=== PATIENT | male | born 1960 | race Caucasian/White ===

== ENCOUNTER 2016-10-29 17:44 | Inpatient (IN) | payer OTHER ==
[~2016-10-29] VITALS: Ht 180.3 cm; Wt 121.8 kg
[~2016-10-29 17:44] MED LIST: AZOR10TA4 PO; HYDR-2768 PO
[2016-10-29 17:52] VITALS: BP 201/122; PULSE 103; RESP 20; TEMP 98.6; O2SAT 100
[2016-10-29] MEDS ORDERED: AMLO-298 PO (18:04)
[2016-10-29] MEDS ORDERED: MORPHINE SULFATE 4 MG/ML INJ IV PUSH ONE (18:15)
[2016-10-29] MEDS ORDERED: ONDANSETRON HCL 4 MG/2 ML VIAL IV PUSH ONE (18:15)
[2016-10-29 18:17] LABS: AUTOMATED NEUTROPHIL # 5.1 TH/MM3 (1.8-7.7); BASOPHIL # 0.1 TH/MM3 (0-0.2); BASOPHIL % 1.4 % (0.0-2.0); EOSINOPHIL # 0.2 TH/MM3 (0-0.4); HEMATOCRIT 46.9 % (39.0-51.0); HEMO FLAGS DIFF FINAL; LYMPH % 24.8 % (9.0-44.0); MEAN CELL VOLUME 91.2 FL (80.0-100.0); MEAN CORPUSCULAR HGB CONC 32.8 % (32.0-36.0); NEUT % 62.8 % (16.0-70.0); PLATELET COUNT 265 TH/MM3 (150-450); RED BLOOD COUNT 5.14 MIL/MM3 (4.50-5.90); RED CELL DISTRIBUTION WIDTH 14.4 % (11.6-17.2); WHITE BLOOD COUNT 8.2 TH/MM3 (4.0-11.0)
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
[2016-10-29 19:00] VITALS: BP 141/86; PULSE 80; RESP 14; O2SAT 98
[2016-10-29 19:01] LABS: BICARBONATE 25.1 MEQ/L (21.0-32.0); POTASSIUM 4.2 MEQ/L (3.5-5.1)
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
[2016-10-29] MEDS ORDERED: SODIUM CHLOR 0.9% 1000 ML INJ 1,000 ML IV SCH ×3 (19:39→23:37)
[2016-10-29 20:22] VITALS: BP 76/52; PULSE 90; RESP 18; O2SAT 99
[2016-10-29 20:30] VITALS: BP 102/64; PULSE 82; RESP 18; O2SAT 99
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
[2016-10-29 22:00] VITALS: BP 107/72; PULSE 86; RESP 16; O2SAT 98
[2016-10-29 22:37] LABS: AUTOMATED NEUTROPHIL # 14.7 TH/MM3 (1.8-7.7); BASOPHIL # 0.2 TH/MM3 (0-0.2); EOSINOPHIL # 0.1 TH/MM3 (0-0.4); EOSINOPHIL % 0.4 % (0.0-4.0); HEMATOCRIT 37.6 % (39.0-51.0); HEMO FLAGS DIFF FINAL; LYMPH % 9.4 % (9.0-44.0); LYMPHOCYTE # 1.7 TH/MM3 (1.0-4.8); MEAN CELL VOLUME 90.8 FL (80.0-100.0); MEAN CORPUSCULAR HEMOGLOBIN 31.1 PG (27.0-34.0); MEAN CORPUSCULAR HGB CONC 34.3 % (32.0-36.0); MONO % 8.8 % (0.0-8.0); NEUT % 80.4 % (16.0-70.0); PLATELET COUNT 265 TH/MM3 (150-450); RED BLOOD COUNT 4.14 MIL/MM3 (4.50-5.90); RED CELL DISTRIBUTION WIDTH 14.1 % (11.6-17.2); WHITE BLOOD COUNT 18.3 TH/MM3 (4.0-11.0)
[2016-10-29] MEDS ORDERED: SODIUM CHLORIDE 0.9% FLUSH 10 ML FLUSH IV FLUSH PRN (23:45)
[2016-10-29] MEDS ORDERED: MAGNESIUM HYDROXIDE SUSP 30 ML CUP PO PRN (23:45)
[2016-10-29] MEDS ORDERED: HYDROmorphone HCL PF 1 MG/ML VIAL IVP PRN (23:45)
[2016-10-29] MEDS ORDERED: ONDANSETRON HCL 4 MG/2 ML VIAL IV PRN (23:45)
[2016-10-29] MEDS ORDERED: CHLORHEXIDINE GLUCONATE 2 % 1 PACK (2 CLOTHS) TOP PRN (23:45)
[2016-10-29] MEDS ORDERED: MISCELLANEOUS NURSING INFORMATION XX SCH (23:45)
[2016-10-30] VITALS (9 sets, daily range): BP systolic 145–180; BP diastolic 89–99; PULSE 81–96; RESP 15–22; TEMP 96–97.8; O2SAT 93–100
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
[2016-10-30] MEDS: HYDROmorphone HCL PF 1 MG/ML VIAL IVP PRN ×3 (00:32→09:52)
[2016-10-30] MEDS ORDERED: CHLORHEXIDINE GLUCONATE 2 % 1 PACK (2 CLOTHS) TOP SCH (04:00)
[2016-10-30 08:04] LABS: AUTOMATED NEUTROPHIL # 6.7 TH/MM3 (1.8-7.7); BASOPHIL # 0.1 TH/MM3 (0-0.2); BASOPHIL % 0.8 % (0.0-2.0); EOSINOPHIL # 0.1 TH/MM3 (0-0.4); EOSINOPHIL % 0.9 % (0.0-4.0); HEMATOCRIT 34.5 % (39.0-51.0); HEMO FLAGS DIFF FINAL; LYMPHOCYTE # 1.7 TH/MM3 (1.0-4.8); MEAN CELL VOLUME 91.9 FL (80.0-100.0); MEAN CORPUSCULAR HEMOGLOBIN 29.9 PG (27.0-34.0); MEAN CORPUSCULAR HGB CONC 32.6 % (32.0-36.0); NEUT % 70.3 % (16.0-70.0); PLATELET COUNT 207 TH/MM3 (150-450); RED BLOOD COUNT 3.75 MIL/MM3 (4.50-5.90); RED CELL DISTRIBUTION WIDTH 14.4 % (11.6-17.2); WHITE BLOOD COUNT 9.5 TH/MM3 (4.0-11.0)
[2016-10-30] MEDS: DOCUSATE SODIUM 100 MG CAP PO SCH ×2 (08:37→20:16)
[2016-10-30] MEDS: LOSARTAN 50 MG TAB PO SCH (08:38)
[2016-10-30 08:46] LABS: BICARBONATE 28.1 MEQ/L (21.0-32.0); POTASSIUM 4.2 MEQ/L (3.5-5.1)
[2016-10-30] MEDS ORDERED: NON-FORMULARY DRUG (Amlodipine-Olmesartan 1 TAB) PO SCH (09:00)
[2016-10-30] MEDS: GABAPENTIN 400 MG CAP PO SCH ×2 (12:47→18:12)
[2016-10-30] MEDS: KETOROLAC TROMETHAMINE 30 MG/ML (IVP) VIAL IV PUSH SCH ×2 (12:48→18:13)
[2016-10-30] MEDS: ENOXAPARIN SODIUM 40 MG/0.4 ML SYRINGE SQ SCH (12:48)
--- NOTE | 2016-10-30 16:52 | HHI.PR ---
Subjective Subjective Notes Complains of pain left flank area with some neuropathic component, less pain at the groin hematoma area Objective Vitals/I&O Vital Signs Date Time Temp Pulse Resp B/P Pulse Ox O2 Delivery O2 Flow Rate FiO2 10/30/16 12:00 96.0 93 20 145/97 93 10/30/16 00:00 Room Air Labs Laboratory Tests Test 10/29/16 10/29/16 10/30/16 18:00 22:25 06:59 White Blood Count 8.2 18.3 9.5 Red Blood Count 5.14 4.14 3.75 Hemoglobin 15.4 12.9 11.2 Hematocrit 46.9 37.6 34.5 Mean Corpuscular Volume 91.2 90.8 91.9 Mean Corpuscular Hemoglobin 30.0 31.1 29.9 Mean Corpuscular Hemoglobin 32.8 34.3 32.6 Concent Red Cell Distribution Width 14.4 14.1 14.4 Platelet Count 265 265 207 Mean Platelet Volume 8.6 8.3 8.7 Neutrophils (%) (Auto) 62.8 80.4 70.3 Lymphocytes (%) (Auto) 24.8 9.4 18.0 Monocytes (%) (Auto) 9.0 8.8 10.0 Eosinophils (%) (Auto) 2.0 0.4 0.9 Basophils (%) (Auto) 1.4 1.0 0.8 Neutrophils # (Auto) 5.1 14.7 6.7 Lymphocytes # (Auto) 2.0 1.7 1.7 Monocytes # (Auto) 0.7 1.6 1.0 Eosinophils # (Auto) 0.2 0.1 0.1 Basophils # (Auto) 0.1 0.2 0.1 CBC Comment DIFF FINAL DIFF FINAL DIFF FINAL Differential Comment Sodium Level 139 141 Potassium Level 4.2 4.2 Chloride Level 107 109 Carbon Dioxide Level 25.1 28.1 Anion Gap 7 4 Blood Urea Nitrogen 21 18 Creatinine 1.29 1.01 Estimat Glomerular Filtration 58 76 Rate Random Glucose 110 102 Calcium Level 10.3 9.1 Cardiovascular: Regular Lungs: Clear Abdomen: Non-distended Narrative Exam Flank no hematoma slightly tender soft tissue muscles A/P Assessment and Plan stable negative CT scans without IV contrast. He has a benign abdominal exam, he is certainly has contusions of his left flank and left groin areas. pain control, physical therapy Altaras,Mariel Paul MD Oct 30, 2016 16:52
[2016-10-31 00:10] VITALS: BP 151/86; PULSE 96; RESP 18; TEMP 97.3; O2SAT 94
[2016-10-31] MEDS: KETOROLAC TROMETHAMINE 30 MG/ML (IVP) VIAL IV PUSH SCH ×3 (01:27→13:32)
[2016-10-31 08:00] VITALS: BP 163/97; PULSE 84; RESP 20; TEMP 97.1; O2SAT 92
[2016-10-31] MEDS ORDERED: LACTULOSE SYRUP 20 GM/30 ML CUP PO SCH (09:00)
[2016-10-31] MEDS: DOCUSATE SODIUM 100 MG CAP PO SCH (10:00)
[2016-10-31] MEDS: GABAPENTIN 400 MG CAP PO SCH ×2 (10:00→13:32)
[2016-10-31] MEDS: LOSARTAN 50 MG TAB PO SCH (10:01)
[2016-10-31] MEDS ORDERED: NEUR400C PO (11:01)
[2016-10-31] MEDS ORDERED: WALKER WHEELS/F1 MIS (11:02)
[2016-10-31 12:00] VITALS: BP 155/87; PULSE 107; RESP 16; TEMP 96.7; O2SAT 95
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
[2016-10-31] MEDS ORDERED: PERC5TAB12 PO (12:53)
[2016-10-31] MEDS: ENOXAPARIN SODIUM 40 MG/0.4 ML SYRINGE SQ SCH (13:32)
== END 2016-10-31 14:21 | disposition home health service (06) | DRG 914 ==
LOC: NEPE 17:44 → NEDA 23:50 → N06B 10-30 01:27
PROVIDERS: ADMIT Surgery Trauma Surgery; ATTEND Surgery Trauma Surgery
DX: S09.90XA Unspecified injury of head, initial encounter (principal); I10 Essential (primary) hypertension; J98.11 Atelectasis; S70.12XA Contusion of left thigh, initial encounter; V43.52XA Car driver injured in collision with other type car in traffic accident, initial encounter; Y92.410 Unspecified street and highway as the place of occurrence of the external cause; S30.1XXA Contusion of abdominal wall, initial encounter; S40.022A Contusion of left upper arm, initial encounter; Z79.899 Other long term (current) drug therapy
CPT/HCPCS: 70450; 71010; 71250; 72125; 73090; 73552; 74176; 80048; 85025; 93926; 94150; 96361; 96374; 96375; J1170; J1650; J1885; J2270; J2405; J7030